=== PATIENT | male | born 1970 | race Caucasian/White ===

== ENCOUNTER 2017-01-25 10:15 | Emergency (ER) | payer MEDICAID, OTHER ==
--- NOTE | 2017-01-25 10:58 | ED Physician Chart ---
Chief Complaint/HPI - Patient Information Date Seen:: 01/25/17 Time Seen:: 10:40 Chief Complaint:: left ankle and left leg pain History of Present Illness:: 3 weeks ago the patient inverted his left ankle. For the last 2 weeks patient' s had pain of the entire left leg. 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 Patient sprained his left ankle 3 years ago and x-rays were negative. He's had recurrent left ankle sprains since then. Allergies:: Allergies Allergy/AdvReac Type Severity Reaction Status Date / Time No Known Allergies Allergy Verified 01/25/17 10:38 Vitals:: Vital Signs - 8 hr 01/25/17 10:39 Temp 98.1 F HR 79 RR 16 BP 122/80 O2 Sat % 98 Historian:: Patient Review:: Nurse's Note Reviewed Review of Systems - Review of Systems General/Constitutional: No fever, No chills Skin: No skin lesions Head: No headache Eyes: No loss of vision ENT: No earache, No nasal drainage Neck: No neck pain, No thyromegaly Cardio Vascular: No chest pain, No palpitations Pulmonary: No SOB, No cough GI: No nausea, Vomiting G/U: No dysuria, No hematuria Musculoskeletal: Bone or joint pain, Muscle pain Endocrine: No polyuria, No polydipsia Psychiatric: No prior psych history, No depression, No anxiety Hematopoietic: No bruising, No lymphadenopathy Allergic/Immuno: No urticaria Neurological: No syncope Past Medical History - Past Medical History Past Medical History: No significant medical hx Family History: Diabetes Melitus Social History: Smoker, Alcohol Surgical History: other (bulging discs in his low back;) Psychiatricy History: None Medication: Reviewed Family Medical History - Family Member Mother History Unknown: Yes Physical Exam - Physical Examination General/Constitutional: Well-developed, well-nourished, Alert, No distress Head: Atraumatic Eyes: Lids, conjuctiva normal, PERRL Skin: Nl inspection, No rash, No skin lesions, No ecchymosis, Well hydrated, No lymphadenopathy ENMT: External ears, nose nl, Lips, teeth, gums nl Neck: No nuchal rigidity Respiratory: Nl effort/Exclusion, Clear to Auscultation, No Wheeze/Rhonchi/Rales Cardio Vascular: RRR, No murmur, gallop, rubs, NL S1 S2 GI: No tenderness/rebounding/guarding, No organomegaly, No hernia : No CVA tenderness Other Extremities comments:: Left ankle: 1.5 out of 4 swelling; tenderness anterior talofibular ligament; left leg: No swelling or redness; varicose veins noted both legs Labs/Radiology/EKG Results - Lab Results Comments:: X-ray left ankle showed mild arthritis; no fracture - Radiology Results Results: Venous Doppler left leg demonstrated no deep vein thrombosis. Assessment - Assessment General Assessment: Patient was asked to follow up with his primary care physician for possible referral. to an orthopedist would probably do an MRI of his ankle. ED Septic Shock - . Is Septic Shock (SBP<90, OR Lactate>4 mmol\L) present?: No - <6hrs of presentation: Vital Signs: Vital Signs - 8 hr / 10:39 Temp 98.1 F HR 79 RR 16 BP 122/80 O2 Sat % 98 Reassessment (Disposition) - Reassessment Reassessment Condition:: Unchanged - Diagnosis Diagnosis:: Left ankle sprain - Aftercare/Follow up Instructions Aftercare/Follow-Up Instructions:: Refer to Discharge Instructions - Patient Disposition Discharge/Transfer:: Home Condition at Disposition:: Stable, Unchanged ED Discharge Plan - Patient Disposition Instructions: Ankle Sprain, [id number] Accepting Physician: Adrien Man [Courtesy] - 1-3 Days
--- NOTE | 2017-01-25 11:22 | Diagnostic Imaging Report ---
Left ankle (3 views) HISTORY: Pain Degenerative changes with spur formation noted off the articular surface of the distal tibia. No acute abnormalities. No fractures. Spur formation also noted about the medial malleolus. IMPRESSION: 1. No acute bony abnormalities 2. Degenerative changes
--- NOTE | 2017-01-25 13:30 | Diagnostic Imaging Report ---
Left lower extremity Doppler venous ultrasound exam HISTORY: Pain/swelling Sonographic sector images were obtained through the deep venous system of the left leg. Associated Doppler data was obtained. The exam demonstrates patency of the common femoral, superficial femoral, popliteal, and posterior tibial veins. Specifically, no thrombus is seen. There are normal compressibility and augmentation responses. IMPRESSION: Negative exam for deep vein thrombophlebitis.
== END 2017-01-25 11:45 | disposition home or self-care (01) ==
LOC: ER 10:15
DX: S93.402A Sprain of unspecified ligament of left ankle, initial encounter (principal); F17.200 Nicotine dependence, unspecified, uncomplicated; X58.XXXA Exposure to other specified factors, initial encounter; Y93.89 Activity, other specified; Y92.89 Other specified places as the place of occurrence of the external cause; Y99.8 Other external cause status
CPT/HCPCS: 73610-TC; 93971-TC-LT; Z7502